=== PATIENT | female | born 1985 ===

== ENCOUNTER 2020-12-01 18:38 | Emergency (ER) | payer OTHER, MEDICAID ==
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
[2020-12-01] MEDS ORDERED: LORazepam 2 MG/ML SDV IM ONE (19:06)
[2020-12-01] MEDS ORDERED: Ketorolac 30 MG/ML SDV IM ONE (19:06)
== END 2020-12-01 19:28 | disposition home or self-care (01) ==
LOC: FB.ED 18:38
DX: M54.2 Cervicalgia (principal); V49.40XA Driver injured in collision with unspecified motor vehicles in traffic accident, initial encounter; Y92.410 Unspecified street and highway as the place of occurrence of the external cause
CPT/HCPCS: 96372; 99283; J1885; J2060